=== PATIENT | male | born 1995 | race Caucasian/White ===

== ENCOUNTER 2017-07-17 15:50 | Emergency (ER) | payer BC ==
[~2017-07-17] VITALS: Ht 180.3 cm; Wt 46.4 kg
[~2017-07-17 15:50] MED LIST: INSDGI SC; INSU100I2 SC
[2017-07-17 15:58] VITALS: Ht 180.3 cm; Wt 46.4 kg
[2017-07-17] MEDS ORDERED: SODIUM CHLORIDE 0.9% 1000ML 1,000 ML IV ONE (16:15)
[2017-07-17] MEDS ORDERED: SODIUM CHLORIDE 0.9% 1000ML 2,000 ML IV STA (16:24)
[2017-07-17 16:34] LABS: BASO % 1.4 %; BASO ABS # 0.09 K/uL (0-0.2); EOS % 1.5 %; HEMOGLOBIN 15.5 g/dL (14.0-18.0); IG# 0.01 K/uL (0.00-0.02); LYMPH % 30.2 %; LYMPH ABS # 1.96 K/uL (1.2-3.4); MEAN CELL VOLUME 90.7 fL (80-100); MEAN CORPUSCULAR HEMOGLOBIN 32.7 pg (25-34); MEAN PLATELET VOLUME 10.2 fL (7.4-10.4); MONO % 5.2 %; MONO ABS # 0.34 K/uL (0.11-0.59); NEUT % 61.5 %; PLATELET COUNT 329 K/uL (130-400)
[2017-07-17 17:02] LABS: ALBUMIN 3.8 gm/dl (3.4-5.0); CREATININE 0.97 mg/dl (0.60-1.40); POTASSIUM 4.4 mmol/L (3.5-5.1); TOTAL PROTEIN 7.7 gm/dl (6.4-8.2)
[2017-07-17] MEDS ORDERED: NovoLIN-R INSULIN PER UNIT CHARGE IV STA ×2 (17:08→18:53)
[2017-07-17] MEDS ORDERED: SODIUM CHLORIDE 0.9% 1000ML 1,000 ML IV STA (18:38)
[2017-07-17] MEDS ORDERED: FLUCONAZOLE 50 MG TAB PO ONE (20:45)
[2017-07-17 20:57] VITALS: BP 108/64; PULSE 104; TEMP 36.8; O2SAT 100
--- NOTE | 2017-07-17 23:39 | EMERGENCY ROOM VISIT NOTE ---
History Report prepared by Barrera: Leticia Corona Under the Supervision of: Dr. Gerardo Sanchez D.O. First contact with patient: 16:19 Chief Complaint: HYPERGLYCEMIA Stated Complaint: HIGH BLOOD SUGAR,SENT FROM [facility] Nursing Triage Summary: Pt to the ED from [facility], pt states "having surgery on my foreskin." Pt states, " My blood sugar is high." Pt not forthcoming with information. States BSG has been high since last week. Denies n/v/d. Pt states checks BSG 2-3 times a day. History of Present Illness The patient is a 21 year old male who presents to the Emergency Room with complaints of persistent high blood sugar starting earlier today. He was having testing for upcoming surgery when they found that his blood sugar was high. He was sent to the ED. The patient has a history of type 1 diabetes. He uses Lantus at night and Humalog during the day on a sliding scale. The patient took his Lantus last night. He is visiting from [place] and forgot to bring his insulin. He checks his sugar 2-3 times a day. He found that it was in the 400s this morning. Pt denies headache, change in vision, fevers, chest pain, shortness of breath, nausea, vomiting, diarrhea, pain with urination, and melena. He denies any other medical problems. Source of History: patient Onset: earlier today Position: other (blood sugar) Symptom Intensity: over 400 Quality: other (high) Timing: other (persistent) Associated Symptoms: No fevers, No headache, No chest pain, No SOB, No nausea, No vomiting, No diarrhea, No urinary symptoms Review of Systems See HPI for pertinent positives & negatives. A total of 10 systems reviewed and were otherwise negative. Past Medical & Surgical Medical Problems: (1) Diabetes type I Family History No pertinent family history stated. Social History Smoking Status: Never Smoker Marital Status: single Occupation Status: unemployed Current/Historical Medications Scheduled Insulin Glargine (Lantus), 22 UNITS SC QPM Insulin Lispro (Human) (Humalog Kwikpen), 1 DOSE SC ACHS Allergies Coded Allergies: No Known Allergies (Unverified , 07/17/17) Physical Exam Vital Signs Date Time Temp Pulse Resp B/P (MAP) Pulse Ox O2 Delivery O2 Flow Rate FiO2 07/17/17 20:57 36.8 104 18 108/64 100 07/17/17 17:37 104 18 108/64 100 Room Air 07/17/17 16:20 112 07/17/17 15:58 36.8 127 18 115/74 95 Room Air Physical Exam GENERAL: Sitting up in bed, alert, well appearing, well nourished, no distress, non-toxic EYE EXAM: normal conjunctiva. OROPHARYNX: no exudate, no erythema, lips, buccal mucosa, and tongue normal and mucous membranes are moist NECK: supple, no nuchal rigidity, no adenopathy, non-tender LUNGS: Clear to auscultation. Normal chest wall mechanics HEART: no murmurs, S1 normal and S2 normal ABDOMEN: abdomen soft, non-tender, normo-active bowel sounds, no masses, no rebound or guarding. BACK: Back is symmetrical on inspection and there is no deformity, no midline tenderness, no CVA tenderness. SKIN: no rashes and no bruising UPPER EXTREMITIES: upper extremities are grossly normal. LOWER EXTREMITIES: No pitting edema. NEURO EXAM: Normal sensorium, cranial nerves II-XII grossly intact, normal speech, no gross weakness of arms, no gross weakness of legs. Medical Decision & Procedures Laboratory Results 07/17/17 16:10 Red Blood Count 4.74, Mean Corpuscular Volume 90.7, Mean Corpuscular Hemoglobin 32.7, Mean Corpuscular Hemoglobin Concent 36.0, Mean Platelet Volume 10.2, Neutrophils (%) (Auto) 61.5, Lymphocytes (%) (Auto) 30.2, Monocytes (%) (Auto) 5.2, Eosinophils (%) (Auto) 1.5, Basophils (%) (Auto) 1.4, Neutrophils # (Auto) 4.00, Lymphocytes # (Auto) 1.96, Monocytes # (Auto) 0.34, Eosinophils # (Auto) 0.10, Basophils # (Auto) 0.09 07/17/17 16:10 Test 07/17/17 16:10 07/17/17 16:59 07/17/17 19:00 07/17/17 20:18 White Blood Count 6.50 K/uL (4.8-10.8) Red Blood Count 4.74 M/uL (4.7-6.1) Hemoglobin 15.5 g/dL (14.0-18.0) Hematocrit 43.0 % (42-52) Mean Corpuscular Volume 90.7 fL (80-100) Mean Corpuscular Hemoglobin 32.7 pg (25-34) Mean Corpuscular Hemoglobin Concent 36.0 g/dl (32-36) Platelet Count 329 K/uL (130-400) Mean Platelet Volume 10.2 fL (7.4-10.4) Neutrophils (%) (Auto) 61.5 % Lymphocytes (%) (Auto) 30.2 % Monocytes (%) (Auto) 5.2 % Eosinophils (%) (Auto) 1.5 % Basophils (%) (Auto) 1.4 % Neutrophils # (Auto) 4.00 K/uL (1.4-6.5) Lymphocytes # (Auto) 1.96 K/uL (1.2-3.4) Monocytes # (Auto) 0.34 K/uL (0.11-0.59) Eosinophils # (Auto) 0.10 K/uL (0-0.5) Basophils # (Auto) 0.09 K/uL (0-0.2) RDW Standard Deviation 43.0 fL (36.4-46.3) RDW Coefficient of Variation 13.0 % (11.5-14.5) Immature Granulocyte % (Auto) 0.2 % Immature Granulocyte # (Auto) 0.01 K/uL (0.00-0.02) Anion Gap 6.0 mmol/L (3-11) Est Creatinine Clear Calc Drug Dose 79.7 ml/min Estimated GFR () 129.7 Estimated GFR (Non- 111.9 BUN/Creatinine Ratio 15.1 (10-20) Calcium Level 9.0 mg/dl (8.5-10.1) Total Bilirubin 0.8 mg/dl (0.2-1) Aspartate Amino Transf (AST/SGOT) 156 U/L (15-37) Alanine Aminotransferase (ALT/SGPT) 261 U/L (12-78) Alkaline Phosphatase 173 U/L (45-117) Total Protein 7.7 gm/dl (6.4-8.2) Albumin 3.8 gm/dl (3.4-5.0) Globulin 3.9 gm/dl (2.5-4.0) Albumin/Globulin Ratio 1.0 (0.9-2) Beta-Hydroxybutyric Acid 8.96 mg/dL (0.2-2.81) Venous Blood pH 7.33 (7.36-7.41) Venous Blood Partial Pressure CO2 54 mmHg (38.0-50.0) Venous Blood Partial Pressure O2 29 mmHg Venous Blood HCO3 28 mmol/L Venous Blood Oxygen Saturation < 60.0 % Venous Blood Base Excess 1.3 mEq/L Urine Color YELLOW Urine Appearance CLEAR (CLEAR) Urine pH 6.5 (4.5-7.5) Urine Specific [place] 1.042 (1.000-1.030) Urine Protein NEG (NEG) Urine Glucose (UA) 3+ (NEG) Urine Ketones TRACE (NEG) Urine Occult Blood NEG (NEG) Urine Nitrite NEG (NEG) Urine Bilirubin NEG (NEG) Urine Urobilinogen NEG (NEG) Urine Leukocyte Esterase SMALL (NEG) Urine WBC (Auto) 10-30 /hpf (0-5) Urine RBC (Auto) 0-4 /hpf (0-4) Urine Hyaline Casts (Auto) 0 /lpf (0-5) Urine Epithelial Cells (Auto) 0-5 /lpf (0-5) Urine Bacteria (Auto) NEG (NEG) Urine Yeast (Auto) PRESENT (NONE PRSENT) Bedside Glucose 263 mg/dl (70-99) Laboratory results per my review. Medications Administered Medications (Trade) Dose Ordered Sig/Candelario Route Start Time Stop Time Status Last Admin Dose Admin Sodium Chloride 1,000 ml @ 0 mls/hr Q0M ONCE IV 07/17/17 16:15 07/17/17 16:16 DC 07/17/17 16:19 1,000 MLS/HR Sodium Chloride 2,000 ml @ 999 mls/hr Q2H1M STAT IV 07/17/17 16:24 07/17/17 18:24 DC 07/17/17 16:46 999 MLS/HR Insulin Human Regular (novoLIN-R U-100 PER UNIT) 10 units NOW STAT IV 07/17/17 17:08 07/17/17 17:10 DC 07/17/17 17:36 10 UNITS Sodium Chloride 1,000 ml @ 999 mls/hr Q1H1M STAT IV 07/17/17 18:38 07/17/17 19:38 DC 07/17/17 18:56 999 MLS/HR Insulin Human Regular (novoLIN-R U-100 PER UNIT) 3 units NOW STAT IV 07/17/17 18:53 07/17/17 18:54 DC 07/17/17 19:07 3 UNITS Fluconazole (Diflucan Tab) 150 mg NOW ONCE PO 07/17/17 20:45 07/17/17 20:46 DC 07/17/17 20:48 150 MG ED Course ED COURSE: Vital signs were reviewed and showed tachycardia. The patients medical record was reviewed The above diagnostic studies were performed and reviewed. ED treatments and interventions as stated above. 1615: Sodium Chloride 1000 ml @ 0 mls/hr IV. 1620: The patient was evaluated in room D4B. A complete history and physical examination was performed. 1624: Sodium Chloride 2000 ml @ 999 mls/hr IV. 1708: Insulin Human Regular 10 units IV. 180: I reevaluated the patient. I updated him on the results. 1837: Sodium Chloride 1000 ml @ 999 mls/hr IV. 1852: Insulin Human Regular 3 units IV. 2005: I reevaluated the patient. He is feeling much better. 2044: Fluconazole 150 mg PO. 2046: Upon reevaluation, the patient is feeling better. I discussed my findings with the patient and he understands and agrees with the treatment plan. Based on the patients age, coexisting illnesses, exam and lab findings the decision to treat as an outpatient was made. The patient remained stable while under my care. The patient appeared well at the time of discharge. Medical Decision Differential Diagnosis includes but is not limited to dehydration, stroke, anemia, hypoglycemia, hyponatremia, hypernatremia, urinary tract infection, pneumonia, bronchitis, sepsis, gastroenteritis, additional abdominal pathology, metabolic abnormalities and infections. Patient is a 21-year-old male who is a type I diabetic that was referred in by urology's preop evaluation for elevated blood sugars. He is from [place] and notes they took his Lantus last night but did not take his NovoLog with him today when he came to [facility]. Labs were obtained and CBC and BMP were remarkable for a BSG of 117. No gap. CO2 was normal. Mild transaminitis 150- 200. Bilirubin was normal. VBG with a pH of 7.33. UA did have yeast with a small amount of leukocytes and white cells. I do favor this is related to the yeast as opposed to a true infection. He has no urinary complaints. Patient was afebrile. Patient was given 10 units IV insulin followed by an additional 3. BSG came down to the low 200s. He was given 3 L normal saline. His monitor closely while in the ER. He had mild hyponatremia which is expected with his hyperglycemia. He had no complaints. He was tachycardic upon presentation heart rate trended down to the high 90s. He was updated at bedside. He was discharged following dose Diflucan to follow-up with his PCP and continue his home insulin. He will follow-up with his LFTs as an outpatient. Discussed with Pt concerning signs and symptoms to watch out for. Pt was instructed to follow up with their PCP and discussed with the patient their option to return to the ED at anytime for persistent or worsening symptoms. The appropriate anticipatory guidance and out-patient management, including indications for return to the emergency department, were explained at length to the patient and understood. Medication Reconcilliation Current Medication List: was personally reviewed by me Blood Pressure Screening Patient's blood pressure: Normal blood pressure Blood pressure disposition: Did not require urgent referral Impression Primary Impression: Hyperglycemia Additional Impressions: Transaminitis Diabetes type I Scribe Attestation The scribe's documentation has been prepared under my direction and personally reviewed by me in its entirety. I confirm that the note above accurately reflects all work, treatment, procedures, and medical decision making performed by me. Departure Information Dispostion Home / Self-Care Referrals Stevo Oneil D.O. (PCP) Forms HOME CARE DOCUMENTATION FORM, IMPORTANT VISIT INFORMATION, WORK / SCHOOL INSTRUCTIONS Patient Instructions ED Hyperglycemia Diabetic, My [facility] Additional Instructions Please follow up with your primary care doctor with in the next 24 hours. Any worsening of your symptoms, please return to the ED immediately. This includes any fevers greater than 100.4, worsening pain, chest pain, shortness breath, persistent nausea, vomiting, unable to eat or drink, or any other concerning signs or symptoms from your standpoint. When you go home please monitor your sugars closely for the next 2 hours and dose appropriately your insulin. You should have your LFTs which is your liver functions repeated within 1 week. Any right upper quadrant pain, nausea vomiting diarrhea he should return to the ER. Problem Qualifiers Additional Impressions: Diabetes type I Diabetes mellitus complication status: with unspecified complications Qualified Codes: E10.8 - Type 1 diabetes mellitus with unspecified complications
== END 2017-07-17 20:58 | disposition home or self-care (01) ==
LOC: C.EDB 15:52 → C.EDD 20:58
DX: R73.9 Hyperglycemia, unspecified (principal); R74.0 Nonspecific elevation of levels of transaminase and lactic acid dehydrogenase [LDH]; E10.8 Type 1 diabetes mellitus with unspecified complications; Z79.4 Long term (current) use of insulin